=== PATIENT | male | born 1990 | race Caucasian/White ===

== ENCOUNTER 2016-11-12 18:19 | Emergency (ER) | payer OTHER ==
[2016-11-12] MEDS ORDERED: HYDROCODONE/ACETAMINOPHEN 5/325MG TABLET ONE (18:53)
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
== END 2016-11-12 20:55 | disposition home or self-care (01) ==
LOC: ED 18:19
DX: F07.81 Postconcussional syndrome (principal); R55 Syncope and collapse; M48.03 Spinal stenosis, cervicothoracic region; S02.2XXA Fracture of nasal bones, initial encounter for closed fracture; Y04.2XXA Assault by strike against or bumped into by another person, initial encounter; Y92.89 Other specified places as the place of occurrence of the external cause
CPT/HCPCS: 72125; 70450; 70486; 99283 ×2; 93005; A9270